=== PATIENT | female | born 1940 | race Caucasian/White ===

== ENCOUNTER 2021-05-15 05:42 | Outpatient (CLI) | payer MEDICARE, MEDICAID ==
[~2021-05-15] VITALS: Ht 170.3 cm; Wt 87.0 kg
[2021-05-15] MEDS ORDERED: PRAV20TA3 PO (13:37)
[2021-05-15] MEDS ORDERED: FLUT9.9S NS (13:37)
[2021-05-15] MEDS ORDERED: PRED5DRO24 OP (13:37)
[2021-05-15] MEDS ORDERED: LISI5TAB20 PO (13:37)
[2021-05-15] MEDS ORDERED: FAMO40TA72 PO (13:37)
[2021-05-15] MEDS ORDERED: LORA10TA76 PO (13:37)
[2021-05-15] MEDS ORDERED: FLUO20CA42 PO (13:37)
[2021-05-15] MEDS ORDERED: METF100P2 MC (13:37)
== END 2021-05-15 13:44 | disposition home or self-care (01) ==
LOC: PREOP 05:42
PROVIDERS: ATTEND Specialist
DX: Z01.818 Encounter for other preprocedural examination (principal)

== ENCOUNTER 2021-05-18 06:39 | Day surgery (SDC) | payer MEDICARE, MEDICAID ==
[~2021-05-18] VITALS: Ht 170.3 cm; Wt 87.0 kg
[~2021-05-18 06:39] MED LIST: FAMO40TA72 PO; FLUO20CA42 PO; FLUT9.9S NS; LISI5TAB20 PO; LORA10TA76 PO; METF100P2 MC; PRAV20TA3 PO; PRED5DRO24 OP
[2021-05-18] MEDS ORDERED: LIDOCAINE PF 1% 2 ML VIAL IR PRN (07:00)
[2021-05-18] MEDS ORDERED: MOXIFLOXACIN OPHTH SOLN 5 MG/ML 0.3 ML SYRINGE OP ONE (07:00)
[2021-05-18] MEDS ORDERED: TIMOLOL MALEATE 0.5% 5 ML (TIMOPTIC) BTL OU PRN (07:00)
[2021-05-18] MEDS ORDERED: POVIDONE (BETADINE) OPHTH SOLN 5% 30 ML OP ONE (07:00)
[2021-05-18] MEDS: TETRACAINE 0.5% OPHTH SOLN 4 ML BTL (SINGLE DOSE ONLY) OU PRN ×4 (07:05→07:30)
[2021-05-18 07:08] VITALS: BP 171/99
[2021-05-18] MEDS: PHENYLEPHRINE 10% OPHTH (NEO-SYN) 5 ML BTL OU SCH ×3 (07:16→07:30)
[2021-05-18] MEDS: TROPICAMIDE 1% OPH SOLN (MYDRIACYL) 15 ML BTL OP SCH ×3 (07:17→07:30)
[2021-05-18] MEDS ORDERED: MIDAZOLAM 2 MG/2 ML (VERSED) VIAL ONE (07:45)
--- NOTE | 2021-05-18 08:00 | Ophthalmologist Pre-Op Note ---
Pre-Operative Progress Note H&P Reviewed The H&P was reviewed, patient examined and no changes noted. Date H&P Reviewed: May 18, 2021 Time H&P Reviewed: 08:00 Pre-Op Dx Cataract, Right Eye NICKY SALVADOR MD May 18, 2021 08:00
--- NOTE | 2021-05-18 08:20 | Ophthalmology Operative Report ---
Cataract removal/placement IOL PREOPERATIVE DIAGNOSIS: Cataract Right Eye POSTOPERATIVE DIAGNOSIS: Cataract Right Eye PROCEDURE: Cataract removal and placement of posterior chamber implant, right eye SURGEON: Lacho Salvador ANESTHESIA: Topical with sedation COMPLICATIONS: None ESTIMATED BLOOD LOSS: Minimal DESCRIPTION OF PROCEDURE: After proper informed consent was obtained, the patient, a 80 female, was taken to the Operating Room and the right eye was anesthetized with tetracaine. The right eye was then prepped and draped in the usual manner. A wire lid speculum was placed. A paracentesis was made at the left hand position. Preservative free lidocaine was injected into the anterior chamber followed by viscoelastic. A clear corneal incision was made in the temporal position. A capsulorrhexis was preformed and the central nuclear and cortical material were removed. The posterior capsule was polished and Juwan 19.5 AU00T0 IOL was placed into the capsular bag. The residual viscoelastic was aspirated and balanced saline solution was injected into the anterior chamber. Moxifloxacin was injected into the anterior chamber. The wound was checked and found to be water tight. The patient tolerated the procedure well without complications. LACHO SALVADOR MD May 18, 2021 08:20
[2021-05-18 08:30] VITALS: BP 153/106
--- NOTE | 2021-05-18 10:48 | Anesthesia-General Post-Op ---
MAC Patient Condition Mental Status/LOC: Same as Preop Cardiovascular: Satisfactory Nausea/Vomiting: Absent Respiratory: Satisfactory Pain: Controlled Complications: Absent Post Op Complications Complications None Follow Up Care/Instructions Patient Instructions None needed. Anesthesiology Discharge Order Discharge Order Patient is doing well, no complaints, stable vital signs, no apparent adverse anesthesia problems. No complications reported per nursing. SAURABH SAWYER CRNA May 18, 2021 10:48
[2021-05-18] MEDS ORDERED: acetaZOLAMIDE ER 500 MG CAP (DIAMOX SEQUELS) PO ONE (11:45)
== END 2021-05-18 08:31 ==
LOC: SDC 06:39
PROVIDERS: ATTEND Specialist
DX: E11.36 Type 2 diabetes mellitus with diabetic cataract (principal); H25.11 Age-related nuclear cataract, right eye; I10 Essential (primary) hypertension; K21.9 Gastro-esophageal reflux disease without esophagitis; F32.A Depression, unspecified; M19.90 Unspecified osteoarthritis, unspecified site; R09.81 Nasal congestion; Z79.899 Other long term (current) drug therapy; Z79.84 Long term (current) use of oral hypoglycemic drugs; Z86.73 Personal history of transient ischemic attack (TIA), and cerebral infarction without residual deficits; Z87.891 Personal history of nicotine dependence
CPT/HCPCS: 66984; 82947; V2632

== ENCOUNTER 2021-06-01 10:08 | Day surgery (SDC) | payer MEDICARE, MEDICAID ==
[~2021-06-01] VITALS: Ht 170.3 cm; Wt 87.0 kg
[2021-06-01] MEDS ORDERED: TIMOLOL MALEATE 0.5% 5 ML (TIMOPTIC) BTL OU PRN (10:15)
[2021-06-01] MEDS ORDERED: LIDOCAINE PF 1% 2 ML VIAL IR PRN (10:15)
[2021-06-01] MEDS ORDERED: POVIDONE (BETADINE) OPHTH SOLN 5% 30 ML OP ONE (10:15)
[2021-06-01] MEDS ORDERED: MOXIFLOXACIN OPHTH SOLN 5 MG/ML 0.3 ML SYRINGE OP ONE (10:15)
[2021-06-01] MEDS: TETRACAINE 0.5% OPHTH SOLN 4 ML BTL (SINGLE DOSE ONLY) OU PRN ×4 (10:16→10:33)
[2021-06-01] MEDS: TROPICAMIDE 1% OPH SOLN (MYDRIACYL) 15 ML BTL OP SCH ×3 (10:24→10:34)
[2021-06-01] MEDS: PHENYLEPHRINE 10% OPHTH (NEO-SYN) 5 ML BTL OU SCH ×3 (10:24→10:33)
[2021-06-01] MEDS ORDERED: MIDAZOLAM 2 MG/2 ML (VERSED) VIAL ONE (10:24)
[2021-06-01 10:31] VITALS: BP 165/114
--- NOTE | 2021-06-01 10:41 | Ophthalmologist Pre-Op Note ---
Pre-Operative Progress Note H&P Reviewed The H&P was reviewed, patient examined and no changes noted. Date H&P Reviewed: Jun 01, 2021 Time H&P Reviewed: 10:41 Pre-Op Dx Cataract, Left Eye NICKY SALVADOR MD Jun 01, 2021 10:41
[2021-06-01] MEDS ORDERED: hydrALAZINE (APESOLINE) 20 MG/ML VIAL ONE (10:49)
[2021-06-01] MEDS ORDERED: WATER (STERILE) FOR INJECTION 20 ML ONE (10:51)
--- NOTE | 2021-06-01 11:02 | Ophthalmology Operative Report ---
Cataract removal/placement IOL PREOPERATIVE DIAGNOSIS: Cataract Left Eye POSTOPERATIVE DIAGNOSIS: Cataract Left Eye PROCEDURE: Cataract removal and placement of posterior chamber implant, left eye SURGEON: Lacho Salvador ANESTHESIA: Topical with sedation COMPLICATIONS: None ESTIMATED BLOOD LOSS: Minimal DESCRIPTION OF PROCEDURE: After proper informed consent was obtained, the patient, a 80 female, was taken to the Operating Room and the left eye was anesthetized with tetracaine. The left eye was then prepped and draped in the usual manner. A wire lid speculum was placed. A paracentesis was made at the left hand position. Preservative free lidocaine was injected into the anterior chamber followed by viscoelastic. A clear corneal incision was made in the temporal position. A capsulorrhexis was preformed and the central nuclear and cortical material were removed. The posterior capsule was polished and an Juwan 19.0 AU00T0 was placed into the capsular bag. The residual viscoelastic was aspirated and balanced saline solution was injected into the anterior chamber. Moxifloxacin was injected into the anterior chamber. The wound was checked and found to be water tight. The patient tolerated the procedure well without complications. LACHO SALVADOR MD Jun 01, 2021 11:02
[2021-06-01 11:12] VITALS: BP 177/90
[2021-06-01] MEDS ORDERED: acetaZOLAMIDE ER 500 MG CAP (DIAMOX SEQUELS) PO ONE (11:30)
--- NOTE | 2021-06-01 12:29 | Anesthesia-General Post-Op ---
MAC Patient Condition Mental Status/LOC: Same as Preop Cardiovascular: Satisfactory Nausea/Vomiting: Absent Respiratory: Satisfactory Pain: Controlled Complications: Absent Post Op Complications Complications None Follow Up Care/Instructions Patient Instructions None needed. Anesthesiology Discharge Order Discharge Order Patient is doing well, no complaints, stable vital signs, no apparent adverse anesthesia problems. No complications reported per nursing. AKI BURTON CRNA Jun 01, 2021 12:29
== END 2021-06-01 11:40 ==
LOC: SDC 10:08
PROVIDERS: ATTEND Specialist
DX: E11.36 Type 2 diabetes mellitus with diabetic cataract (principal); H25.12 Age-related nuclear cataract, left eye; I10 Essential (primary) hypertension; K21.9 Gastro-esophageal reflux disease without esophagitis; M19.90 Unspecified osteoarthritis, unspecified site; F32.A Depression, unspecified; Z79.84 Long term (current) use of oral hypoglycemic drugs; Z86.73 Personal history of transient ischemic attack (TIA), and cerebral infarction without residual deficits; Z79.899 Other long term (current) drug therapy; Z87.891 Personal history of nicotine dependence; Z90.710 Acquired absence of both cervix and uterus; Z83.3 Family history of diabetes mellitus
CPT/HCPCS: 66984; 82947; V2632